=== PATIENT | female | born 1990 | race Caucasian/White ===

== ENCOUNTER → 2022-12-18 09:56 | Outpatient (CLI) | payer OTHER, SELFPAY ==
[2022-12-18 10:40] LABS: Hematocrit 33.6 % (36-46); Hemoglobin 11.9 g/dL (12.0-16.0); Mean Corpuscular HGB Conc 35.4 % (30-36); Mean Corpuscular Hemoglobin 31.8 PG (26-34); Mean Corpuscular Volume 89.8 fL (80-100); Platelet Count 186 X10^3/uL (150-400); Red Blood Cell Count 3.74 X10^6/uL (4.0-5.2); Red Cell Distribution Width 13.2 % (11.6-14.8); White Blood Cell Count 8.4 X10^3/uL (4.5-11.0)
[2022-12-18 10:54] LABS: Glucose Fasting 80 mg/dL (70-100)
[2022-12-18 12:18] LABS: Glucose 1 Hour 145 mg/dL (70-170)
[2022-12-18 12:22] LABS: Glucose Tol Interpretation INTERPRETATION
[2022-12-18 13:30] LABS: Glucose 2 Hour 129 mg/dL (70-140)
== END ==
PROVIDERS: Referring Provider Nurse Practitioner Obstetrics & Gynecology; Visit Provider Nurse Practitioner Obstetrics & Gynecology
DX: Z34.90 Encounter for supervision of normal pregnancy, unspecified, unspecified trimester (principal); Z3A.26 26 weeks gestation of pregnancy
CPT/HCPCS: 36415; 82951; 82952; 85027

== ENCOUNTER → 2023-01-12 16:44 | Outpatient (CLI) | payer OTHER, SELFPAY ==
--- NOTE | 2023-01-12 16:45 | DI.US.S_ITS ---
PROCEDURE: US OB LIMITED INDICATIONS: UTERINE SIZE DATE DISCREPANCY OUTSIDE/PRIOR DATING DATA: First dating scan (date and location): 01/12/2023. Estimated date of delivery (AWA) from first dating scan: 02/26/2023 Working AWA is 02/25/2023. TECHNIQUE: Real-time scanning was performed of the fetus, with image documentation and biometric measurements. COMPARISON: [facility], , OB < 14 WEEKS, 08/18/2022, 11:17. FINDINGS: General: A single living intrauterine gestation is present. Presentation: Vertex. Placenta: Placental position is posterior , without previa. Amniotic fluid index: 20.9 cm, normal range is 5-24 cm. Single deepest vertical pocket is 6.0 cm. heart rate: 135 beats per minute. Maternal cervical canal: 4.8 cm long. Normal lower limit is 2.5 cm. biometrics: Biparietal diameter: 33 weeks 4 days Head circumference: 34 weeks 4 days Abdominal circumference: 33 weeks Femur length: 32 weeks 6 days Clinically estimated gestational age: 33 weeks 5 days Composite gestational age from present scan: 33 weeks 4 days Estimated weight and percentile: 2133 g; 27th percentile Other: Limited anatomic survey secondary to advanced gestational age. IMPRESSION: 1. Single living IUP redemonstrated and interval growth is normal with estimated weight 27th percentile. We strive to produce accurate, complete, and clear reports of imaging services. To assist us in improving patient care, this report was composed using standard report templates and voice recognition software. Therefore, it may contain abnormal punctuation, insertions and/or omissions. Occasional wrong-word or sound-alike substitutions may occur. Though we review the report and make efforts to correct it, we do recommend that the report be read carefully in proper context to recognize any text inaccuracies. Dictated by: Shashi PATTERSON Interpreted: Italo Walker MD on 01/12/2023 at 20:58 Approved by: Italo Walker M.D. on 01/13/2023 at 14:23
== END ==
PROVIDERS: Referring Provider Advanced Practice Midwife; Visit Provider Advanced Practice Midwife
DX: O26.843 Uterine size-date discrepancy, third trimester (principal); Z3A.33 33 weeks gestation of pregnancy
CPT/HCPCS: 76815

== ENCOUNTER 2023-02-16 20:32 | Inpatient (IN) | payer OTHER, SELFPAY ==
[2023-02-16 20:58] VITALS: BP 120/82
--- NOTE | 2023-02-16 21:16 | PM.OBHP.1 ---
OB HPI Date/Time Date of admission: 02/16/23 Date Patient Seen: 02/16/23 Time Patient Seen: 21:00 History of Present Condition Chief complaint: observation of labor : 3 Para: 2 Estimated Date of Delivery: 02/25/23 Estimated Gestational Age (weeks): 38.5 Narrative: Lu Beltran is a 32 year old female at 38.5 weeks by sure LMP, concordant with early US. She presents after PROM at 1800, when she stood up and felt a gush of fluid and has subsequently continued to leak clear fluid. On arrival she is grossly ruptured, leaking clear yellow fluid and feeling occasional mild cramps. Uncomplicated care with CN. She is accompanied by her supportive Jose. She is hoping for an unmedicated delivery and would like to 'get things going'. History of Present care: good care, initiated at week # (10), number of visits (9) and pounds weight gain (31) Dating criteria: LMP confirmed by 1st trimester US (US at 10 weeks) Ultrasounds: normal 1st trimester US and normal mid trimester US Obstetrical complications: none Medical complications: neurological (migraines) Preadmission Labs Blood type: B (+) positive -: Antibody screen: negative, GBS status: negative, HBsAG: negative, HIV: negative and RPR/VDLR: negative -: Chlamydia screen: not detected and Gonorrhea screen: not detected -: Rubella: immune and Varicella: immune HCT: 33.6 HCAB: negative Cell-free DNA: Negative Narrative: 2hr GTT: 80, 145, 129 Prior (ies) History: 02/2019 - FAVD (forceps vaginal delivery); 02/2021 - Evaluation Evaluation Baseline heart rate: 120 Variability: Moderate (11-25) monitor accelerations: Present Monitor Decelerations: Absent Contraction Frequency (minutes): 3 (2-5) Uterine Contraction Intensity: Mild Status: Category l Comments: Grossly ruptured, clear yellow fluid, equivocal for meconium CE deferred on admission, yesterday 02/15/23: 2/50/-2, posterior, medium Torre score 7 PFSH Medical History depression Family History Grandmother Diabetes mellitus Hypothyroid Mother Osteoporosis Sister Congenital heart disease Other Cancer Social History marital status: details: Jose household members: spouse lives independently: Yes do you feel safe at home: Yes Smoking Status: Never smoker alcohol intake: former substance use type: does not use Meds Home Medications and Allergies Home Medications Medication Instructions Recorded Confirmed Type sertraline 50 mg tablet (Zoloft) 25 mg PO DAILY 02/16/23 02/16/23 History Review of Systems Review of Systems ROS: Yes All systems reviewed with the patient and are negative except as otherwise documented OB Exam Vital signs Blood Pressure: 120/82 Pulse Rate: 100 Temperature: 97.2 F Resp Effort & Inspection: normal respiratory effort Auscultation: clear to auscultation bilaterally Cardio Rate: regular rate Rhythm: regular rhythm Presentation: vertex Objective Labs 02/16/23 22:00 Assessment and Plan Assessment and Plan Assessment and Plan narrative: A: 32yo at 38 weeks 5 days GBS negative Afebrile Rh postive PROM x3 hrs Early labor FHR Cat 1 P: Admit to center Discussed risks and benefits of expectant management vs. augmentation with Pitocin, Lu would like to start Pitocin following placement of IV Monitor color of amniotic fluid Labor support Alternate movement and rest
[2023-02-16 21:47] VITALS: BP 120/82; PULSE 100; TEMP 36.2
--- NOTE | 2023-02-16 22:24 | PM.ANES.PR ---
Operative Date/Time/Diagnoses Date of procedure: 02/16/23 Time of procedure: 22:02 Pre-op diagnosis: Labor pain Post-op diagnosis: same
[2023-02-16] MEDS: OXYTOCIN PREMIX 30 UNIT/500 ML PLAST..BAG IV (22:36)
[2023-02-16 22:44] LABS: Add Manual Diff / Slide Review NO; Basophils Absolute Auto 100 /uL (0-100); Basophils Percent Auto 1.3 % (0-2); Eosinophils Absolute Auto 100 /uL (0-450); Eosinophils Percent Auto 0.7 % (2-4); Hematocrit 36.5 % (36-46); Hemoglobin 12.7 g/dL (12.0-16.0); Lymphocytes Absolute Auto 2300 /uL (1100-4500); Lymphocytes Percent Auto 21.3 % (25-40); Mean Corpuscular HGB Conc 34.8 % (30-36); Mean Corpuscular Hemoglobin 31.5 PG (26-34); Mean Corpuscular Volume 90.4 fL (80-100); Monocytes Absolute Auto 600 /uL (0-900); Monocytes Percent Auto 5.3 % (3-14); Neutrophils Absolute Auto 7800 /uL (1500-7000); Neutrophils Percent Auto 71.4 % (50-75); Platelet Count 195 X10^3/uL (150-400); Red Blood Cell Count 4.04 X10^6/uL (4.0-5.2); Red Cell Distribution Width 14.1 % (11.6-14.8); White Blood Cell Count 10.9 X10^3/uL (4.5-11.0)
--- NOTE | 2023-02-17 03:23 | PM.OBPRVD ---
Labor & Delivery Delivery date: 02/17/23 Intrapartal Events: None Delivery augmentation: pitocin Delivery monitor: external FHT Route of delivery: Episiotomy description: None L&D Laceration Description: Perineal - 1st Degree Quantitative Blood Loss: 474 Anesthesia Type: None Narrative: Labor progressed well with pitocin augmentation, max dose 4mu. Lu felt the spontaneous urge to push while laboring in the bathtub at 0215 and pushed effectively for a short 2nd stage. FHR was Cat 1 throughout first stage of labor and reassuring by IA throughout 2nd stage after pitocin was turned off. After pushing standing at bedside for multiple contractions, Lu was assisted to hands and knees position resulting in the NSVB of vigorous baby girl Sulma at 0237 in a single push, with no nuchal cord and rapid delivery of shoulders and body. Bright red bleeding noted immediately after delivery, pitocin infusion restarted at 300ml/hr for AMSTL. When Lu was ready she was helped to her side and baby erick Ozuna was placed on maternal abdomen. Apgars 9/10. They remained skin to skin while cord was cut and placenta was delivered. Placenta delivered spontaneously, [place], with maternal efforts and appeared to be intact. Fundus immediately firm, midline at U-2, scant bleeding. 3 vessel cord clamped and cut by Jose at 10 minutes of life after cord pulsing had stopped. Cord blood collected per protocol. Perineum inspected and a midline, hemostatic 1st degree perineal tear was noted with no indication for repair. Blood loss estimated 474 mL. Moderate bleeding with fundal checks in recovery reported by nurse, methergine 2mg IM given Mom and baby left stable and is being initiated. Lu and Jose are thrilled to meet their baby. Kristal CATES, CNM, IBCLC [place] Baby 1: Infant gender: Female Presentation: vertex Position: Right Occiput Anterior Placenta delivery description: Spontaneous Cord Vessel Description: 3 Vessels score (1 min): 9 score (5 min): 10 weight: 3022 kg Plan for aftercare: Routine care
[2023-02-17] MEDS: KETOROLAC 30 MG/ML VIAL IV (04:02)
[2023-02-17] MEDS: ACETAMINOPHEN 325 MG TABLET 650 MG PO ×3 (04:05→16:03)
[2023-02-17] MEDS: DERMOPLAST SPRAY 20% 60 ML 1 SPRAY TOP (04:06)
[2023-02-17] MEDS: METHYLERGONOVINE 0.2 MG/ML VIAL IM (04:06)
[2023-02-17] MEDS: METHYLERGONOVINE 0.2 MG TABLET PO ×3 (09:11→21:50)
[2023-02-17] MEDS: SERTRALINE 50 MG TABLET 25 MG PO (09:11)
[2023-02-17] MEDS: DOCUSATE 100 MG CAPSULE PO (09:11)
[2023-02-17 09:21] LABS: Add Manual Diff / Slide Review NO; Basophils Absolute Auto 100 /uL (0-100); Basophils Percent Auto 0.6 % (0-2); Eosinophils Absolute Auto 100 /uL (0-450); Eosinophils Percent Auto 0.5 % (2-4); Hematocrit 37.7 % (36-46); Lymphocytes Absolute Auto 2400 /uL (1100-4500); Lymphocytes Percent Auto 15.4 % (25-40); Mean Corpuscular HGB Conc 34.4 % (30-36); Mean Corpuscular Hemoglobin 31.5 PG (26-34); Mean Corpuscular Volume 91.4 fL (80-100); Monocytes Absolute Auto 800 /uL (0-900); Monocytes Percent Auto 5.3 % (3-14); Neutrophils Absolute Auto 12200 /uL (1500-7000); Neutrophils Percent Auto 78.2 % (50-75); Platelet Count 186 X10^3/uL (150-400); Red Blood Cell Count 4.13 X10^6/uL (4.0-5.2); Red Cell Distribution Width 13.7 % (11.6-14.8); White Blood Cell Count 15.7 X10^3/uL (4.5-11.0)
[2023-02-17] MEDS: IBUPROFEN 600 MG TABLET PO ×2 (10:34→16:04)
[2023-02-17] MEDS: HYDROCODONE/ACET 5/325 TABLET 1 TAB PO (12:02)
--- NOTE | 2023-02-17 20:17 | PM.OBDS.1 ---
Discharge Providers Provider Date of admission: 02/16/23 20:32 Discharge Date: 02/17/23 Primary care physician: Charisma DILL Provider Consults: 02/18/23 03:10 Consult to Wealth Management Manager Routine Comment: 02/18/23 06:57 Consult to Wealth Management Manager Routine Comment: Discharge provider: Kristal Pyle CNM, ARNP Summary Hospital Course Date Patient Seen: 02/17/23 Time Patient Seen: 20:17 Diagnoses: O80 Hospital Course: Lu arrived after PROM, not in labor. Small dose of pitocin resulted in normal labor and vaginal of vigorous baby girl. No antibiotics given during labor. Normal course. . Peripartum Data Infant Delivery Method: Natural Vaginal Laceration Description: Perineal - 1st Degree Procedures: vaginal delivery [place] 1: Gender: Female Disposition of : home Discharge Diagnosis (1) Mother currently breast-feeding: Status: Acute (2) (normal spontaneous vaginal delivery): Status: Acute (3) Encounter for supervision of other normal , third trimester: Status: Acute (4) First degree perineal laceration during delivery: Status: Acute (5) Depression: Status: Acute Problem Details: Continue sertraline 25 mg daily Status at Discharge Cognitive/behavioral status at discharge: oriented and calm Functional status at discharge: independent ambulation Overall status at discharge: patient is progressing back to baseline Time Spent with Patient Time attestation: Total time spent providing and/or coordinating discharge services: Time spent: Less than 30 minutes Specific discharge activities: discharge teaching Objective Labs 02/17/23 09:15 Labs: Laboratory Results - last 24 hr 02/16/23 02/16/23 02/17/23 22:00 22:00 09:15 WBC 10.9 15.7 H RBC 4.04 4.13 Hgb 12.7 13.0 Hct 36.5 37.7 MCV 90.4 91.4 MCH 31.5 31.5 MCHC 34.8 34.4 RDW 14.1 13.7 Plt Count 195 186 Neut % (Auto) 71.4 78.2 H Lymph % (Auto) 21.3 L 15.4 L [place] % (Auto) 5.3 5.3 Eos % (Auto) 0.7 L 0.5 L Baso % (Auto) 1.3 0.6 Neut # (Auto) 7800 H 74417 H Lymph # (Auto) 2300 2400 [place] # (Auto) 600 800 Eos # (Auto) 100 100 Baso # (Auto) 100 100 Blood Type B Positive Antibody Screen Negative Exam Vital Signs (past 8 hours): BP 101/66 HR 70 Temp 36.2 C SpO2 98% Const General: healthy appearing and comfortable Resp Effort & Inspection: normal respiratory effort and able to speak in complete sentences Other: Fundus firm at U, midline. Lochia scant Perineum first degree laceration healing with minimal edema Skin General: no rashes or lesions noted Neuro General: patient alert, patient awake and patient oriented x3 Psych Appearance: grossly normal Discharge Plan Discharge Plan Patient Disposition: Home Discharge orders & Medications Prescriptions: Continued sertraline [Zoloft] 50 mg tablet 25 mg PO DAILY Follow up/Referrals: ProviderCharisma [Primary Care Provider] - Kristal Pyle CNM, ARNP [[facility]] - 2 Weeks (and 6 weeks as scheduled; check e-mail for details.) Activity Restrictions/Additional Instructions: See ClientCare portal for instructions Discharge Health Status Health Concerns: Continue taking sertraline daily as prescribed. Diet/Activity/Treatments Diet: Diet as Tolerated Diet comment: Increase fiber and fluid to assist with bowels Activity: Low boateng x 2 weeks Cold/Heat Therapy: needed Skin/Wound/Dressing Care Skin care: usual care Report to your healthcare provider any signs of infection, such as:: chills, fever, unusual drainage and unusual redness Visit Report/Discharge Packet Stand Alone Forms: Patient Portal/API Discharge Data Primary Care Provider: ProviderCharisma
[2023-02-17 22:57] VITALS: BP 120/82; PULSE 100; TEMP 36.2
== END 2023-02-17 22:48 | disposition home or self-care (01) | DRG 807 ==
PROVIDERS: Admitting Provider Advanced Practice Midwife; Referring Provider Advanced Practice Midwife; Visit Provider Advanced Practice Midwife
DX: O42.02 Full-term premature rupture of membranes, onset of labor within 24 hours of rupture (principal); Z37.0 Single live birth; Z3A.38 38 weeks gestation of pregnancy; O99.892 Other specified diseases and conditions complicating childbirth; G43.909 Migraine, unspecified, not intractable, without status migrainosus
CPT/HCPCS: 36415; 59050; 85025; 86850; 86900; 86901; G0379; J1885; J2210; J2590

== ENCOUNTER 2025-05-15 19:21 | Emergency (ER) | payer OTHER, SELFPAY ==
[2025-05-15 19:25] VITALS: BP 122/83; PULSE 110; RESP 15; TEMP 37.1; O2SAT 99; BMI 24.3
--- NOTE | 2025-05-15 19:37 | ED.FEMALEGU ---
HPI - Female Genitourinary General Chief complaint: Urogenital-Female Stated complaint: uti / positive test Time Seen by Provider: 05/15/25 19:32 Source: patient Mode of arrival: Ambulatory History of Present Illness HPI Narrative: 34-year-old female patient, 5 para 3 TAB1 at early by a positive urine 4 days ago. LMP was a light. In early March. She complains of 2 weeks of dysuria, frequency and urgency. She has also had brownish vaginal discharge with a slight bleeding. No uterine menstrual like cramps at all. Related Data Home Medications ?Medication ?Instructions ?Recorded ?Confirmed sertraline 50 mg tablet (Zoloft) 25 mg PO DAILY 02/16/23 02/16/23 Allergies Allergy/AdvReac Type Severity Reaction Status Date / Time No Known Drug Allergies Allergy Verified 02/17/23 15:32 Review of Systems Review of Systems ROS Unobtainable: All systems reviewed & are unremarkable except as noted in HPI and below Genitourinary Genitourinary: Reports as per HPI Patient History Medical History depression Family History Grandmother Diabetes mellitus Hypothyroid Mother Osteoporosis Sister Congenital heart disease Other Cancer Alcohol type: wine Exam Narrative Exam Narrative: General: Alert and conversant. No distress. Appears well nourished and well hydrated Lungs: Clear to auscultation with good air movement. No wheezing, rales or rhonchi. No respiratory distress Cardiac: Regular rate and rhythm with no appreciable murmur or gallop Abdomen: Soft, moderate suprapubic tenderness and right lower quadrant/right adnexal tenderness. With no distention or masses. Normal bowel sounds. No rebound or guarding Pelvic: Normal external genitalia. There is a slight amount of brownish discharge in the vault near the cervix. No bleeding and the os is closed. No cervical motion tenderness. Neuro: Alert and oriented. Cranial nerves, motor, sensory and cerebellar all grossly intact. No focal deficit Skin: Warm and normal color. No rashes Psychological: Normal affect and interaction. No evidence of delusion or psychosis. Normal mood. Initial Vital Signs Initial Vital Signs: Vital Signs Temperature 98.8 F 05/15/25 19:25 Pulse Rate 110 H 05/15/25 19:25 Respiratory Rate 15 05/15/25 19:25 Blood Pressure 122/83 05/15/25 19:25 Pulse Oximetry 99 05/15/25 19:25 Oxygen Delivery Method Room Air 05/15/25 19:25 Course Orders Ordered: ED Orders 05/15/25 19:35 Urinalysis and Microscopic Stat 05/15/25 20:00 CBC Auto Diff [Complete Blood Count AUTO DIFF] Stat CMP [Comprehensive Metabolic Panel] Stat HCG Quantitative /Beta subunit Stat Lactate (Lactic Acid) Stat Lipase Stat 05/15/25 20:10 Wet Prep Tric BV Neyda Stat 05/15/25 20:27 US pelvic complete Stat Discontinued Medications Sodium Chloride (Normal Saline 0.9%) 1,000 mls @ 1,000 mls/hr IV BOLUS ONE Stop: 05/15/25 20:33 Last Infusion: 05/15/25 21:06 Dose: Infused Documented By: Admin: 05/15/25 20:02 Dose: 1,000 mls/hr Documented By: HERMINIO Vital Signs Vital signs: Vital Signs - 8 hr 05/15/25 19:25 05/15/25 22:14 Temperature 98.8 F Pulse Rate 110 H 88 Respiratory Rate 15 17 Blood Pressure 122/83 129/77 Pulse Oximetry 99 96 Oxygen Delivery Method Room Air Room Air MDM - Female Genitourinary Lab Data 05/15/25 20:00 05/15/25 20:00 Labs: Lab Results 05/15/25 05/15/25 Range/Units 19:35 20:00 WBC 6.3 (4.5-11.0) X10^3/uL RBC 3.82 L (4.0-5.2) X10^6/uL Hgb 13.3 (12.0-16.0) g/dL Hct 38.4 (36-46) % MCV 100.5 H (80-100) fL MCH 34.8 H (26-34) PG MCHC 34.7 (30-36) % RDW 14.3 (11.6-14.8) % Plt Count 279 (150-400) X10^3/uL Neut % (Auto) 57.1 (50-75) % Lymph % (Auto) 32.8 (25-40) % [place] % (Auto) 7.0 (3-14) % Eos % (Auto) 2.0 (2-4) % Baso % (Auto) 1.1 (0-2) % Neut # (Auto) 3600 (9594-1322) /uL Lymph # (Auto) 2100 (8356-4064) /uL [place] # (Auto) 400 (0-900) /uL Eos # (Auto) 100 (0-450) /uL Baso # (Auto) 100 (0-100) /uL Sodium 137 (137-145) mmol/L Potassium 3.7 (3.4-5.1) mmol/L Chloride 104 (98-107) mmol/L Carbon Dioxide 22 (22-32) mmol/L BUN 9 (7-17) mg/dL Creatinine 0.58 (0.52-1.04) mg/dL Estimated GFR > 60 (>60) mL/min BUN/Creatinine Ratio 15.5 (6-22) Glucose 135 H (70-99) mg/dL Lactate 1.7 (0.7-2.1) mmol/L Calcium 9.1 (8.4-10.2) mg/dL Total Bilirubin 0.7 (0.2-1.3) mg/dL AST 40 H (14-36) IU/L ALT 27 (<35) IU/L Alkaline Phosphatase 66 (38-126) U/L Total Protein 6.7 (6.3-8.2) g/dL Albumin 4.0 (3.5-5.0) g/dL Globulin 2.7 (1.7-4.1) g/dL Albumin/Globulin Ratio 1.5 (1.0-2.8) Lipase 213 (23-300) U/L HCG, Quant 208.99 mIU/mL Urine Color Yellow Urine Appearance Clear Urine pH 6.5 (4.5-8.0) Ur Specific [place] <=1.005 (1.000-1.035) Urine Protein Negative (Negative) Urine Glucose (UA) Negative (Negative) g/dL Urine Ketones Negative (NEGATIVE) Urine Occult Blood Negative (Negative) Urine Nitrate Negative (Negative) Urine Bilirubin Negative (NEGATIVE) Urine Urobilinogen 1.0 (0.2) E.U./dL Ur Leukocyte Esterase Negative (NEGATIVE) Urine RBC None seen (0-5/HPF) Urine WBC None seen (0-5/HPF) Ur Squamous Epith Cells None seen (0-5/HPF) Urine Bacteria None seen (None) Ur Culture Indicated? Cult not indicated Vol Urine Centrifuged 10ml (spun) Point of Care Testing Test Results Positive Urine Dip Bedside Urine Glucose Negative Bedside Urine Bilirubin - Negative Bedside Urine Ketone - Negative Urine Specific [place] 1.000 Bedside Urine Occult Blood - Negative Bedside Urine pH 6.5 Bedside Urine Protein - Negative Bedside Urine Urobilinogen - Negative Bedside Urine Nitrite - Negative Bedside Urine Leukocytes - Negative Esterase Imaging Data US - OB: Radiologist's Impression: IMPRESSION: No intrauterine gestational sac is visualized. of unknown location. Recommend correlation with serial beta HCGs and/or repeat ultrasound in 10-14 days. MDM Narrative Medical decision making narrative: Patient has dysuria and other urinary symptoms with negative urinalysis. Possibly has interstitial cystitis. Her symptoms are definitely suprapubic and not vaginal. She does have a vaginal discharge but exam is unremarkable and no cervical motion tenderness. She has some brownish discharge which could be old blood. She is in early and ultrasound could not see a sac but it may be too early. Patient given reassurance and monitor symptoms. Follow up with primary care/OB. Return to the ER if worse Discharge Plan Departure Patient Disposition: Home Clinical Impression: Dysuria, Early stage of Instructions: Interstitial Cystitis, DI for Dysuria -- Adult Activity Restrictions/Additional Instructions: Assessment: Early with dysuria but negative urine. No signs of urinary tract infection. Vaginal discharge with no infection present on testing. Possible interstitial cystitis. Plan: Monitor symptoms and hydrate. Follow up closely with your doctor. If urinary symptoms persist, may need referral to Urology to assess for interstitial cystitis. Return to the ER if worse Prescriptions: No Action sertraline [Zoloft] 50 mg tablet 25 mg PO DAILY Referrals: Provider,Charisma DILL [Primary Care Provider, Family Practice] Stand Alone Forms: Patient Portal/API
--- NOTE | 2025-05-15 19:45 | PC.NURSE ---
preg test faintly positive
[2025-05-15 19:53] LABS: Appearance Urine UA CLEAR; Bilirubin Urine UA NEGATIVE (NEGATIVE); Color Urine UA YELLOW; Glucose Urine UA NEGATIVE (Negative); Ketones Urine UA NEGATIVE (NEGATIVE); Leukocyte Esterase Urine UA NEGATIVE (NEGATIVE); Nitrite Urine UA NEGATIVE (Negative); Occult Blood Urine UA NEGATIVE (Negative); Protein Urine UA NEGATIVE (Negative); Specific Gravity Urine UA <=1.005 (1.000-1.035); Urobilinogen Urine UA 1.0 E.U./dL (0.2); pH Urine UA 6.5 (4.5-8.0)
[2025-05-15 19:58] LABS: Culture Indicated Urine Cult Not Indicated
[2025-05-15] MEDS: SODIUM CHLORIDE 0.9% 1,000 ML 1000 ML IV (20:02)
[2025-05-15 20:10] LABS: Add Manual Diff / Slide Review NO; Hematocrit 38.4 % (36-46); Hemoglobin 13.3 g/dL (12.0-16.0); Lymphocytes Absolute Auto 2100 /uL (1100-4500); Mean Corpuscular HGB Conc 34.7 % (30-36); Mean Corpuscular Hemoglobin 34.8 PG (26-34); Mean Corpuscular Volume 100.5 fL (80-100); Platelet Count 279 X10^3/uL (150-400)
[2025-05-15 20:22] LABS: Lactate (Lactic Acid) 1.7 mmol/L (0.7-2.1)
[2025-05-15 20:23] LABS: Alanine Aminotransferase 27 IU/L (<35); Albumin 4.0 g/dL (3.5-5.0); Albumin Globulin Ratio 1.5 (1.0-2.8); Alkaline Phosphatase 66 U/L (38-126); Blood Urea Nitrogen 9 mg/dL (7-17); Calcium 9.1 mg/dL (8.4-10.2); Carbon Dioxide 22 mmol/L (22-32); Chloride 104 mmol/L (98-107); Estimated Glomerular Filt Rate > 60 mL/min (>60); Globulin 2.7 g/dL (1.7-4.1); Glucose 135 mg/dL (70-99); HEMOLYSIS < 15 (0-50); Potassium 3.7 mmol/L (3.4-5.1); Sodium 137 mmol/L (137-145); Total Protein 6.7 g/dL (6.3-8.2)
--- NOTE | 2025-05-15 20:27 | DI.US.S_ITS ---
PROCEDURE: US PELVIC COMPLETE INDICATIONS: RT ADNEXAL PAIN; POSITIVE PREG TECHNIQUE: Real-time scanning was performed of the pelvic organs, with image documentation. Additional endovaginal scanning was necessary due to incomplete visualization of the adnexal and endometrial structures by transabdominal scanning. COMPARISON: None. FINDINGS: Uterus: Uterus is anteverted and normal in size at 8.3 x 4.2 x 6.2 cm. The myometrium is homogeneous. The endometrium measures 2.5 mm combined thickness. Ovaries: The right ovary measures 3.0 x 2.1 x 3.6 cm, with a calculated ovarian volume of 11.7 cc. The left ovary measures 1.7 x 3.4 x 1.9 cm, with a calculated ovarian volume of 5.8 cc. The ovaries have a normal sonographic appearance. Less than 12 follicles can be seen in each ovary. No adnexal masses are seen. Other: No pathologic free abdominal or pelvic fluid. IMPRESSION: No intrauterine gestational sac is visualized. of unknown location. Recommend correlation with serial beta HCGs and/or repeat ultrasound in 10-14 days. We strive to produce accurate, complete, and clear reports of imaging services. To assist us in improving patient care, this report was composed using standard report templates and voice recognition software. Therefore, it may contain abnormal punctuation, insertions and/or omissions. Occasional wrong-word or sound-alike substitutions may occur. Though we review the report and make efforts to correct it, we do recommend that the report be read carefully in proper context to recognize any text inaccuracies. Dictated by: Sarita Avila M.D. on 05/15/2025 at 21:41 Approved by: Sarita Avila M.D. on 05/15/2025 at 21:44
[2025-05-15 20:37] LABS: Lipase 213 U/L (23-300)
[2025-05-15 20:40] LABS: HCG Quantitative /Beta subunit 208.99 mIU/mL
[2025-05-15 22:14] VITALS: BP 129/77; PULSE 88; RESP 17; O2SAT 96
== END 2025-05-15 22:16 | disposition home or self-care (01) ==
PROVIDERS: Emergency Provider Emergency Medicine
DX: O23.40 Unspecified infection of urinary tract in pregnancy, unspecified trimester (principal); Z3A.00 Weeks of gestation of pregnancy not specified
CPT/HCPCS: 36415; 76830; 76856; 80053; 81001; 81003; 81025; 83605; 83690; 84702; 85025; 87210; 96360; 99284; J7030